=== PATIENT | male | born 1980 | race Caucasian/White ===

== ENCOUNTER 2019-06-02 14:36 | Emergency (ER) | payer OTHER ==
[2019-06-02 15:21] VITALS: BP 124/83
--- NOTE | 2019-06-02 15:28 | UC ---
Skin Complaint HPI - HPI Summary HPI Summary: Pt presents with c/o worsening swelling of left foot/ankle after being bit/ stung by insect yesterday. Pt took 50 mg of benadyl this morning with no improvement of swelling. Pt denies any difficulty breathing, swallowing or lip swelling. - History of Current Complaint Chief Complaint: UCSkin Time Seen by Provider: 06/02/19 15:12 Stated Complaint: LEFT FOOT/ANKLE/LEG BEE STING REACTION Onset/Duration: Sudden Onset, Lasting Days, Still Present, Worse Since - osnet Skin Exposure Onset/Duration: Days Ago - 1 Timing: Constant Onset Severity: Mild Current Severity: Moderate Pain Intensity: 0 Location: Discrete - left ankle Character: Swelling, Redness Aggravating Factor(s): Touch Alleviating Factor(s): Nothing Associated Signs & Symptoms: Positive: Negative Related History: Insect Bite/Sting - Allergy/Home Medications Allergies/Adverse Reactions: Allergies Allergy/AdvReac Type Severity Reaction Status Date / Time No Known Allergies Allergy Verified 06/02/19 15:12 Home Medications: Home Medications diPHENhydraMINE PO* [Benadryl PO 25 MG TAB*] 25 - 50 mg PO Q6H PRN 06/02/19 [ History Confirmed 06/02/19] PMH/Surg Hx/FS Hx/Imm Hx Previously Healthy: Yes - Surgical History Surgical History: None - Family History Known Family History: Positive: Hypertension - paternal grandfather Negative: Diabetes - Social History Occupation: Employed Full-time Lives: With Family Alcohol Use: Daily Substance Use Type: Marijuana Smoking Status (MU): Former Smoker Have You Smoked in the Last Year: No When Did the Patient Quit Smoking/Using Tobacco: AGE 29 Review of Systems All Other Systems Reviewed And Are Negative: Yes Constitutional: Positive: Negative Skin: Positive: Other - mild erythema Eyes: Positive: Negative ENT: Positive: Negative Respiratory: Positive: Negative Cardiovascular: Positive: Negative Gastrointestinal: Positive: Negative Genitourinary: Positive: Negative Motor: Positive: Negative Neurovascular: Positive: Negative Musculoskeletal: Positive: Edema - left ankle and foot Neurological: Positive: Negative Psychological: Positive: Negative Is Patient Immunocompromised?: No Physical Exam Triage Information Reviewed: Yes Appearance: Well-Appearing Vital Signs: Initial Vital Signs Temp 98.7 F 06/02/19 15:13 Pulse 100 06/02/19 15:13 Resp 16 08/07/19 15:13 BP 124/83 06/02/19 15:13 Pulse Ox 98 06/02/19 15:13 Vital Signs Reviewed: Yes Eye Exam: Normal ENT Exam: Normal ENT: Positive: Hearing grossly normal Dental: Positive: Percussion Tenderness @ Neck exam: Normal Respiratory: Positive: No respiratory distress Cardiovascular: Positive: Tachycardia Musculoskeletal: Positive: Edema @ - non pitting edema left ankle and dorsal aspect of foot Neurological Exam: Normal Psychological Exam: Normal Skin Exam: Normal - mild erythema Course/Dx - Differential Diagnoses - Skin Complaint Differential Diagnoses: Cellulitis, Local Allergic Reaction, Tick Born Illness - Diagnoses Provider Diagnosis: Insect bite of left ankle with local reaction Discharge - Sign-Out/Discharge Documenting (check all that apply): Patient Departure All imaging exams completed and their final reports reviewed: No Studies - Discharge Plan Condition: Stable Disposition: HOME Prescriptions: Cetirizine* [ZyrTEC 10 MG TAB*] 10 mg PO DAILY #7 tab predniSONE TAB* [Deltasone 20 MG TAB*] 20 mg PO DAILY #4 tab Patient Education Materials: Insect Bite or Sting (ED), Ice Pack Application ( ED) Referrals: Homer Pollard MD [Primary Care Provider] - If Needed - Billing Disposition and Condition Condition: STABLE Disposition: Home
== END 2019-06-02 15:42 | disposition home or self-care (01) ==
LOC: UCCORT 14:36
DX: S90.562A Insect bite (nonvenomous), left ankle, initial encounter (principal); W57.XXXA Bitten or stung by nonvenomous insect and other nonvenomous arthropods, initial encounter; Y92.9 Unspecified place or not applicable; Z87.891 Personal history of nicotine dependence
CPT/HCPCS: 99211; G0463